=== PATIENT | male | born 1960 | race Caucasian/White ===

== ENCOUNTER → 2018-01-05 | Outpatient (CLI) | payer MEDICARE, OTHER ==
[2018-01-05 09:28] LABS: HEMATOCRIT 42.8 % (42.0-52.0); HEMOGLOBIN 14.5 g/dl (13.5-17.5); MEAN CORPUSCULAR HGB CONC 33.9 g/dl (32.0-36.5); MEAN CORPUSCULAR VOLUME 85.6 fl (80.0-96.0); PLATELET COUNT, AUTOMATED 202 10^3/uL (150-450); RED CELL DISTRIBUTION WIDTH 12.6 % (11.5-14.5); WHITE BLOOD COUNT 5.4 10^3/uL (4.0-10.0)
[2018-01-05 10:03] LABS: TOTAL 25(OH) VITAMIN D 28.3 NG/ML (30.0-100.0)
[2018-01-05 10:07] LABS: ALBUMIN 3.6 GM/DL (3.2-5.2); ALBUMIN/GLOBULIN RATIO 1.09 (1.00-1.93); ALKALINE PHOSPHATASE 65 U/L (45-117); ALT/SGPT 29 U/L (12-78); ANION GAP 7 MEQ/L (8-16); AST/SGOT 14 U/L (7-37); BILIRUBIN,TOTAL 0.4 MG/DL (0.2-1.0); BLOOD UREA NITROGEN 18 MG/DL (7-18); CALCIUM LEVEL 8.6 MG/DL (8.5-10.1); CARBON DIOXIDE LEVEL 27 MEQ/L (21-32); CHLORIDE LEVEL 108 MEQ/L (98-107); CHOLESTEROL LEVEL 198 MG/DL (<200); CHOLESTEROL RISK RATIO 4.212 (<5); CREATININE FOR GFR 0.95 MG/DL (0.70-1.30); FREE T4 1.15 NG/DL (0.76-1.46); GLOMERULAR FILTRATION RATE > 60.0 (>56); GLUCOSE, FASTING 99 MG/DL (70-100); HDL CHOLESTEROL 47 MG/DL (>40); LDL CHOLESTEROL 123.4 MG/DL (<100); NON-HDL-C 151 MG/DL; POTASSIUM SERUM 4.7 MEQ/L (3.5-5.1); PSA SCREENING 0.89 NG/ML (< 4.0); SODIUM LEVEL 142 MEQ/L (136-145); THYROID STIMULATING HORMONE 0.582 uIU/ML (0.358-3.740); TOTAL PROTEIN 6.9 GM/DL (6.4-8.2); TRIGLYCERIDES LEVEL 138 MG/DL (<150)
== END ==
LOC: M LAB 08:40
DX: M79.671 Pain in right foot (principal); E78.5 Hyperlipidemia, unspecified; Z12.5 Encounter for screening for malignant neoplasm of prostate; E55.9 Vitamin D deficiency, unspecified
CPT/HCPCS: 73630

== ENCOUNTER → 2018-04-12 | Outpatient (REF) | payer MEDICARE, OTHER | LOC: M LAB REF 15:32 | DX: D23.121 Other benign neoplasm of skin of left upper eyelid, including canthus (principal) | CPT/HCPCS: 88304 ==

== ENCOUNTER → 2018-11-14 | Outpatient (CLI) | payer MEDICARE, OTHER ==
--- NOTE | 2018-11-20 08:07 | REP ---
CT of the chest without IV contrast for follow up of lung nodules: Comparison is an outside study dated 09/25 2018 from the [place], [place]. The following lung nodules are identified: Image 38, left upper lobe pleural-based, 2 mm, unchanged. Image 44, left upper lobe, pleural-based , 2 mm, unchanged. Image 44, left upper lobe, pleural-based, 2 mm, unchanged. Image 47, right lower lobe, pleural-based, 2 mm, unchanged. Image 56, right lower lobe, 7 mm, unchanged. Image 56, right middle lobe, 4 mm, unchanged. Image 69, left lower lobe, pleural-based, 6 mm, unchanged. Image 70, left lower lobe, 4 mm, unchanged. No new lung nodules are identified. There is curvilinear scarring inferiorly in the right upper lobe and in the lower lobes bilaterally, unchanged. There are no infiltrates. There are no pleural effusions. There is no mediastinal or axillary lymph node enlargement. In the absence of IV contrast the study is insensitive for hilar lymph node enlargement. The unenhanced thoracic aorta is unremarkable. Cardiac size is normal. There are occasional atheromatous calcifications in the coronary arteries, unchanged. There is no pericardial effusion. In the visualized upper abdomen there is wall thickening of small bowel loops in the abdominal right upper quadrant, nonspecific but compatible with enteritis in the appropriate clinical setting. There is no adrenal mass. Impression: All of the patient's lung nodules have been stable for 2 months. No new lung nodules are identified. The largest nodule measures 7 mm. Therefore, an additional follow-up chest CT is recommended in 3 months. Electronically Signed by Robbie Cota MD 11/20/2018 07:58 A
== END ==
LOC: M RAD 17:23
PROVIDERS: ATTEND Family Medicine
DX: R91.1 Solitary pulmonary nodule (principal)

== ENCOUNTER → 2018-12-28 | Outpatient (CLI) | payer MEDICARE, OTHER ==
[~2018-12-28] MED LIST: BACL10TA2 PO; GABA-1171 PO; HYDR-3363 PO; MELO15TA28 PO; NORC1TAB7 PO; PRAV20TA2 PO; SILD100T PO; TRAZ-252 PO
--- NOTE | 2018-12-28 10:05 | PFTRPT ---
Height: 73.00 Inches Weight: 215.00 Lbs BSA: 2.22 Diagnosis: R06.02 DATE OF PROCEDURE: 12/28/2018 ORDERED BY: Dr. Foster Spirometry: Pre and post bronchodilator study of excellent technical quality. Forced vital capacity normal. FEV1 in proportion. Obstructive index is, therefore, normal. Flow Volume Loop: Expiratory limb of the flow volume loop is normal. No significant bronchodilator response identified. Lung Volumes: Total lung capacity normal. Residual volume is in proportion. Diffusing Capacity: Diffusing capacity is normal. Hemoglobin: Hemoglobin acceptable at 13.9. Airway Mechanics: Airway resistance and conductance (cut off). IMPRESSION: Normal study. MTDD
== END ==
LOC: M CARPUL 09:24
PROVIDERS: ATTEND Internal Medicine Pulmonary Disease
DX: R06.02 Shortness of breath (principal)

== ENCOUNTER 2019-01-01 07:03 | Day surgery (SDC) | payer MEDICARE, OTHER ==
[~2019-01-01] VITALS: Ht 185.4 cm; Wt 97.1 kg
[~2019-01-01 07:03] MED LIST changes: +LR 1,000 ML IV ONE; -NORC1TAB7 PO
[2019-01-01] MEDS ORDERED: NORC1TAB7 PO (11:07)
[2019-01-01] MEDS ORDERED: PROPOFOL 200 MG/20 ML VIAL As Ordered ONE (11:23)
[2019-01-01] MEDS ORDERED: LIDOCAINE 2% INJ 100 MG/5 ML SDV (FOR ANES.) As Ordered ONE (11:23)
[2019-01-01] MEDS ORDERED: ROCURONIUM BROMIDE 50 MG/5 ML VIAL As Ordered ONE ×2 (11:23→12:47)
[2019-01-01] MEDS ORDERED: fentaNYL 250 MCG/5 ML INJECTION (J3010) As Ordered ONE (11:26)
[2019-01-01] MEDS ORDERED: MIDAZOLAM INJ 2 MG/2 ML VIAL (J2250) As Ordered ONE (11:26)
[2019-01-01] MEDS ORDERED: BUPIVACAINE/EPIN 0.25% 30 ML VIAL As Ordered ONE (11:42)
[2019-01-01] MEDS ORDERED: dexameTHASONE 4 MG/ML 1ML VIAL (J1100) As Ordered ONE (12:11)
[2019-01-01] MEDS ORDERED: ACETAMINOPHEN 1000MG 100ML IV BTL (OFIRMEV) (J0131 PER 10MG) As Ordered ONE (12:11)
[2019-01-01] MEDS ORDERED: ePHEDrine SULFATE 25 MG/5 ML(5MG/ML) SYRINGE As Ordered ONE (12:24)
[2019-01-01] MEDS ORDERED: SUGAMMADEX SODIUM 500 MG/5 ML VIAL (BRIDION) As Ordered ONE (12:26)
[2019-01-01] MEDS ORDERED: ONDANSETRON 4MG/2ML VIAL (J2405) As Ordered ONE (12:34)
[2019-01-01] MEDS ORDERED: GLYCOPYRROLATE INJ 0.2 MG/ML 2 ML VIAL As Ordered ONE (12:36)
[2019-01-01] MEDS ORDERED: KETOROLAC 60 MG/2 ML VIAL (J1885) As Ordered ONE (12:54)
[2019-01-01] MEDS: fentaNYL 100 MCG/2 ML INJECTION (J3010) IV PRN ×4 (13:19→13:39)
[2019-01-01] MEDS ORDERED: fentaNYL 100 MCG/2 ML INJECTION (J3010) As Ordered ONE (13:19)
[2019-01-01] MEDS ORDERED: NORCO, ANEXSIA 5/325MG TABLET (HYDROcodone/ACETAMINOPHEN) PO PRN (13:30)
[2019-01-01] MEDS ORDERED: ONDANSETRON 4MG/2ML VIAL (J2405) IV PRN (13:30)
[2019-01-01] MEDS ORDERED: LR 1,000 ML IV SCH (13:30)
[2019-01-01] MEDS: oxyCODONE 5MG TAB PO PRN ×2 (13:43→14:25)
[2019-01-01 15:40] VITALS: BP 142/81
--- NOTE | 2019-01-02 08:16 | RO ---
DATE OF PROCEDURE: 01/01/2019 PREOPERATIVE DIAGNOSIS: Incarcerated ventral hernia. POSTOPERATIVE DIAGNOSIS: Incarcerated ventral hernia. PROCEDURE: Laparoscopic repair of incarcerated umbilical hernia. SURGEON: Dr. Robbie Rivera. FAMILY RESOURCE COORDINATOR: None. ANESTHESIA: General. ESTIMATED BLOOD LOSS: 5. COMPLICATIONS: None. INDICATIONS FOR PROCEDURE: The patient is a 58-year-old male who presents with pain periumbilically with intermittent lumps, is found to have a swollen area around the umbilicus on exam. Recommendation was to proceed with laparoscopic repair. Risks, benefits of procedure not limited to including bleeding, infection, hernia recurrence, hernia formation, damage to surrounding structures, need for further surgery were discussed in detail with the patient. Informed consent was obtained and procedure was planned. PROCEDURE: The patient was brought back to the operating room eight. After sufficient sedation, the abdomen was sterilely prepped and draped. Next time-out was done to confirm proper patient and proper procedure. Following that, a 5 mm incision was made in the left upper quadrant. Veress needle was inserted and the abdomen was insufflated 15 mmHg. Next Veress needle was removed. A 5 mm Optiview port was used to gain access to the abdomen. Once the abdomen was entered, there was extensive amount of preperitoneal fat along the entire midline of the abdomen. No obvious hernias were identified. There was some swollen, edematous fat periumbilically but that was the only sign that there was something abnormal in that area. Another 5 mm port was placed in the left lower quadrant. Using the Enseal, the preperitoneal fat was dissected free from the falciform ligament all the way inferior to the umbilicus. There was a small hernia defect identified at the umbilicus about 5 mm in size. There were no other ventral hernias identified anywhere else in the midline. I have looked extensively, did not see anything anywhere else. Once this was completed, the hernia was reduced at the umbilicus. 9 cm of Parietex mesh was taken, had #0 Vicryl sutures placed in all four corners. Mesh was placed inside the abdomen. Transfascial sutures were brought out through the abdominal wall, tied in place. A secure strap tacker was then used to place two rows of tacks around the perimeter of the mesh thus completing the procedure. The abdomen was then desufflated. Skin incisions were closed #4-0 Vicryl subcuticular sutures. The abdomen was cleaned and dried. Steri-Strips, 4x4 and tape were applied thus ending procedure.
== END 2019-01-01 16:00 | disposition home or self-care (01) ==
LOC: M SDC 07:03
PROVIDERS: ATTEND Surgery
DX: K43.6 Other and unspecified ventral hernia with obstruction, without gangrene (principal); E78.5 Hyperlipidemia, unspecified; Z79.899 Other long term (current) drug therapy; Z88.5 Allergy status to narcotic agent
CPT/HCPCS: 49653; C1781; J0131; J0690; J1100; J1885; J2250; J2405; J3010

== ENCOUNTER → 2019-02-14 | Outpatient (CLI) | payer MEDICARE, OTHER ==
[~2019-02-14] MED LIST changes: -LR 1,000 ML IV ONE; +NORC1TAB7 PO
--- NOTE | 2019-02-14 09:35 | REP ---
CT of the chest without IV contrast for follow up of lung nodules: Comparisons are the chest CT dated 11/14/[address] dated 09/25/2018. There are the following lung nodules again identified and are all unchanged from the prior studies: Image 34, left upper lobe, pleural-based, 2 mm, unchanged. Image 40, left upper lobe, pleural-based, 2 ml, unchanged. Image 40, left upper lobe, pleural-based, 2 mm, unchanged. Image 41, right lower lobe, pleural-based, 2 mm, unchanged. Image 49, right middle lobe, 4 mm, unchanged. Image 51, right lower lobe, 7 mm, unchanged. Image 63, left lower lobe, pleural-based, 6 mm, unchanged. Image 63, left lower lobe, 4 mm, unchanged. There are no new lung masses or nodules. There are focal zones of curvilinear scarring in the right upper lobe and in the lower lobes bilaterally, unchanged. There is a new focal zone of discoid atelectasis in the right middle lobe. The unenhanced thoracic aorta is unremarkable. Cardiac size is normal. Calcified atheroma is again identified in the coronary arteries, unchanged. The visualized unenhanced upper abdominal contents again demonstrate wall thickening of small bowel loops in the right upper quadrant, similar to the prior study. There is also now wall thickening of the transverse colon as an interval change. This is nonspecific and may represent enteritis or colitis in the appropriate clinical setting. Impression: All of the patient's lung nodules are stable and unchanged. Focal zones of curvilinear scarring are unchanged. New discoid atelectasis in the right middle lobe. There are findings compatible with enteritis and small bowel loops in the right upper quadrant, similar to the prior study. On the study today there are findings compatible with colitis of the transverse colon, not present previously. Electronically Signed by Robbie Cota MD 02/14/2019 09:27 A
== END ==
LOC: M RAD 08:33
PROVIDERS: ATTEND Internal Medicine Pulmonary Disease
DX: R91.8 Other nonspecific abnormal finding of lung field (principal)

== ENCOUNTER → 2019-02-15 | Outpatient (CLI) | payer MEDICARE, OTHER ==
[~2019-02-15] MED LIST changes: +METHACHOLINE KIT (J7674) INH ONE
--- NOTE | 2019-02-15 13:27 | PFTRPT ---
Height: 73.00 Inches Weight: 215.00 Lbs BSA: 2.22 Diagnosis: R06.02 DATE OF PROCEDURE: 02/15/2019 ORDERED BY: Dr. Foster INTERPRETATION: Excellent technical quality. Under protocol, methacholine was administered. At a dose of 10 mg or 63.875 CDUs, a 22% decline in the FEV1 was noted. PC of 6.59 is significant. Flow rates did return to baseline post bronchodilator administration. IMPRESSION: Positive methacholine challenge study. MTDD
== END ==
LOC: M CARPUL 12:26
PROVIDERS: ATTEND Internal Medicine Pulmonary Disease
DX: R06.02 Shortness of breath (principal)
CPT/HCPCS: 94070; 95070; J7674

== ENCOUNTER → 2019-05-28 | Outpatient (REF) | payer MEDICARE, OTHER ==
[~2019-05-28] MED LIST changes: -METHACHOLINE KIT (J7674) INH ONE
[2019-05-28 13:17] LABS: ALT/SGPT 27 U/L (12-78); BILIRUBIN,TOTAL 0.6 MG/DL (0.2-1.0); BLOOD UREA NITROGEN 20 MG/DL (7-18); CARBON DIOXIDE LEVEL 23 MEQ/L (21-32); CHLORIDE LEVEL 109 MEQ/L (98-107); CHOLESTEROL LEVEL 215 MG/DL (<200); CHOLESTEROL RISK RATIO 5.119 (<5); CREATININE FOR GFR 1.17 MG/DL (0.70-1.30); GLOMERULAR FILTRATION RATE > 60.0 (>56); GLUCOSE, FASTING 97 MG/DL (70-100); HDL CHOLESTEROL 42 MG/DL (>40); LDL CHOLESTEROL 129 MG/DL (<100); NON-HDL-C 173 MG/DL; POTASSIUM SERUM 4.7 MEQ/L (3.5-5.1); SODIUM LEVEL 140 MEQ/L (136-145); TOTAL PROTEIN 7.2 GM/DL (6.4-8.2); TRIGLYCERIDES LEVEL 220 MG/DL (<150)
[2019-05-28 13:55] LABS: TOTAL 25(OH) VITAMIN D 20.9 NG/ML (30.0-100.0)
== END ==
LOC: M SFHCPLAZ 09:38
PROVIDERS: ATTEND Physician Assistant
DX: E78.2 Mixed hyperlipidemia (principal); Z12.5 Encounter for screening for malignant neoplasm of prostate; E55.9 Vitamin D deficiency, unspecified
CPT/HCPCS: 36415; 80053; 80061; 82306; G0103

== ENCOUNTER → 2019-05-28 | Outpatient (CLI) | payer MEDICARE, OTHER ==
--- NOTE | 2019-05-28 10:19 | REPPI ---
Clinical: Left elbow pain. Technique: AP, lateral, bilateral oblique views of the left elbow. Findings: Well corticated bony fragments are identified along the lateral humeral condyle and calcific tendinopathy at the olecranon process is appreciated. There is no evidence for acute fracture or dislocation. No significant swelling. Anterior and posterior fat pads are in normal position. Impression: Chronic/post traumatic changes. No obvious acute process appreciated. Electronically Signed by Jeff Armenta MD 05/28/2019 10:10 A
== END ==
LOC: M PLAIMG 09:48
PROVIDERS: ATTEND Physician Assistant
DX: M25.522 Pain in left elbow (principal); E78.2 Mixed hyperlipidemia; Z12.5 Encounter for screening for malignant neoplasm of prostate; E55.9 Vitamin D deficiency, unspecified
CPT/HCPCS: 36415; 73080; 80053; 80061; 82306; G0103; G0463

== ENCOUNTER → 2019-08-13 | Outpatient (CLI) | payer MEDICARE, OTHER ==
--- NOTE | 2019-08-13 11:47 | REP ---
CT CHEST WITHOUT CONTRAST: HISTORY: Abnormal lung field finding. Comparison chest CT studies are dated February 14, 2019, November 14, 2018, and September 15, 2018. FINDINGS: The previously noted 7 mm noncalcified pulmonary nodule in the right lower lobe is again seen, displayed on page 55 of 109 in series 201 of today's study. This is unchanged from the September 25, 2018 study. The other areas of pleuroparenchymal fibrosis and tiny subpleural nodularity are also unchanged from the September 25, 2018 study. No new pulmonary nodules appreciated. No infiltrate is seen. No adrenal lesion is seen. The visualized upper abdominal structures are unremarkable. There is some vascular calcification along the course of the left coronary artery. No hilar or mediastinal mass or adenopathy is seen. No pleural or pericardial effusion is noted. IMPRESSION: Stable pulmonary nodular changes. The largest of these is a 7 mm nodule in the right lower lobe. 6-month followup study suggested. Electronically Signed by Lennox Cristobal MD 08/13/2019 12:36 P
== END ==
LOC: M RAD 10:49
PROVIDERS: ATTEND Internal Medicine Pulmonary Disease
DX: R91.8 Other nonspecific abnormal finding of lung field (principal)

== ENCOUNTER → 2019-11-19 | Outpatient (CLI) | payer MEDICARE, OTHER ==
--- NOTE | 2019-11-19 23:00 | REP ---
REASON FOR EXAM: Assess for possible periumbilical hernia. Patient has periumbilical pain. Multiple ultrasonographic images of the region of interest show no evidence of a ventral rent. IMPRESSION: No ultrasonographic evidence of a hernia. Consider further evaluation with anatomical imaging, such as CT. Electronically Signed by Parviz Vora DO 11/20/2019 10:10 A
== END ==
LOC: M RAD 13:40
PROVIDERS: ATTEND Surgery
DX: R10.33 Periumbilical pain (principal)

== ENCOUNTER → 2020-02-25 | Outpatient (CLI) | payer MEDICARE, OTHER ==
--- NOTE | 2020-03-05 12:40 | REP ---
CT CHEST WITHOUT CONTRAST HISTORY: Other nonspecific abnormal finding of lung field. COMPARISON: Chest CT studies are reviewed the most recent of which is from 08/13/2019 and the most remote of which is from 09/25/2018. CT FINDINGS: There are multiple stable nodular opacities scattered in the lung mirza. The largest of these is a 7-mm nodule in the right lower lobe. This does not appear to have grown in the 17-month interval since the 09/25/2018 study. The other nodular opacities are unchanged. No new nodule is seen in the lung mirza. No pulmonary mass lesion is observed. Bilateral lower lobe, lingular, and right middle lobe atelectatic changes and fibrotic changes are again noted essentially unchanged. No endobronchial lesion is appreciated. No hilar or mediastinal mass is seen. There is no evidence of pleural or pericardial effusion. There is mild left coronary artery vascular calcification. No adrenal lesion is seen. Visualized upper abdominal structures are unremarkable. IMPRESSION: Stable pulmonary nodular densities, the largest of which is a 7-mm nodule in the right lower lobe. Fifteen month stability demonstrated. Repeat CT study recommended in 9-12 months. MTDD
== END ==
LOC: M RAD 14:10
PROVIDERS: ATTEND Internal Medicine Pulmonary Disease
DX: R91.8 Other nonspecific abnormal finding of lung field (principal)

== ENCOUNTER 2020-03-28 13:29 | Emergency (ER) | payer MEDICARE, OTHER ==
[~2020-03-28] VITALS: Ht 185.4 cm; Wt 100.0 kg
[2020-03-28] MEDS ORDERED: ASPIRIN 81 MG CHEW TABLET PO ONE (14:00)
[2020-03-28] MEDS ORDERED: NS 1,000 ML IV ONE (14:00)
[2020-03-28] MEDS ORDERED: GI COCKTAIL 50ML BTL(HYOSCYAMINE/MAALOX/LIDOCAINE VISCOUS)(1:3:1) PO ONE (14:00)
[2020-03-28 14:03] LABS: BASO % 0.6 % (0.0-1.0); EOS # 0.2 10^3/uL (0.0-0.5); EOS % 4.7 % (0.0-3.0); HEMATOCRIT 43.2 % (42.0-52.0); HEMOGLOBIN 14.3 g/dl (13.5-17.5); LYMPH # 1.6 10^3/uL (1.5-5.0); LYMPH % 32.1 % (24.0-44.0); MEAN CORPUSCULAR HEMOGLOBIN 29.1 pg (27.0-33.0); MEAN CORPUSCULAR HGB CONC 33.1 g/dl (32.0-36.5); MONO # 0.6 10^3/uL (0.0-0.8); MONO % 12.6 % (0.0-5.0); NEUTROPHILS # 2.5 10^3/uL (1.5-8.5); NEUTROPHILS % 49.6 % (36.0-66.0); PLATELET COUNT, AUTOMATED 207 10^3/uL (150-450); RED BLOOD COUNT 4.91 10^6/uL (4.30-6.10); WHITE BLOOD COUNT 5.1 10^3/uL (4.0-10.0)
[2020-03-28] MEDS ORDERED: ISOVUE-370 76% 100ML VIAL As Ordered ONE (14:03)
--- NOTE | 2020-03-28 14:03 | REP ---
INDICATION: CHEST PAIN. COMPARISON: None. TECHNIQUE: Sitting AP portable view. FINDINGS: Monitoring electrodes overlie the chest. There is linear platelike atelectasis in the right base above and slightly elevated right hemidiaphragm. Pleural angles are sharp. No infiltrate is seen. Heart is not enlarged. Pulmonary vasculature is not increased. No bony abnormality. IMPRESSION: Minimal platelike atelectasis right base. Otherwise no active disease. <Electronically signed by Martin Cristobal > 03/28/20 1400
[2020-03-28 14:34] LABS: ALBUMIN 3.6 GM/DL (3.2-5.2); ALT/SGPT 35 U/L (12-78); BILIRUBIN,DIRECT < 0.1 MG/DL (0.0-0.2); BILIRUBIN,TOTAL 0.3 MG/DL (0.2-1.0); LIPASE 96 U/L (73-393); NT-PRO BNP 55 PG/ML (<125); THYROID STIMULATING HORMONE 0.804 uIU/ML (0.358-3.740); TOTAL PROTEIN 6.9 GM/DL (6.4-8.2)
--- NOTE | 2020-03-28 14:42 | REP ---
INDICATION: chest pain/abdominal pain. COMPARISON: 02/25/2020 TECHNIQUE: CT angiogram chest performed following the intravenous administration of 100 cc of Isovue 370. Sagittal and coronal reconstruction images are performed. FINDINGS: Lungs: There are stable fibrotic changes bilaterally. There is stable subcentimeter nodular density in the right lung on image number 41 and there is a stable nodular density in the right lower lobe on image 44. There dependent atelectatic changes in both lungs. Mediastinum: No adenopathy. Pulmonary arteries: No evidence of pulmonary embolism. Geno: No adenopathy. Axilla: No adenopathy. Pleura: No effusion. Heart: Not enlarged. Thoracic aorta: No aneurysm or dissection. Upper abdominal structures: Unremarkable. Visualized osseous structures: Unremarkable. IMPRESSION: No CT evidence of pulmonary embolism.No infiltrate seen. <Electronically signed by Robbie Braswell > 03/28/20 [id number]
--- NOTE | 2020-03-28 14:48 | REP ---
INDICATION: chest pain/abdominal pain COMPARISON: None. TECHNIQUE: CT Scan of the abdomen and pelvis was performed with intravenous administration of 100 cc of Isovue 370, without oral contrast. FINDINGS: Liver: Few scattered subcentimeter hypodensities in the liver probably represent cysts. Gallbladder: Unremarkable. Spleen: Normal. Adrenals: Normal. Pancreas: Normal. Kidneys: Normal. Small and large bowel: There are multiple diverticula of the sigmoid and left colon without acute diverticulitis. Free fluid: None. Abdominal aorta: No aneurysm or dissection. Adenopathy: None. Appendix: Not inflamed. Osseous structures: There are mild degenerative changes of the spine without compression deformity. Pelvis: No mass. IMPRESSION: No acute abnormalities. Colonic diverticulosis without acute diverticulitis. No evidence of appendicitis. No free air or free fluid. <Electronically signed by Robbie Braswell > 03/28/20 [id number]
[2020-03-28 16:05] VITALS: BP 129/72
--- NOTE | 2020-03-29 07:50 | ECGEPIP ---
[facility] - ED Test Date: 2020-03-28 Pat Name: WAYNE RODRIGUEZ Department: Room: - Gender: Male Platform Software Engineer: : 1960 Requested By: Viviane Isaac Order Number: [id number] Reading MD: John Ramírez Measurements Intervals [place] Rate: 84 P: 11 PA: 164 QRS: -9 QRSD: 101 T: 9 QT: 360 QTc: 426 Interpretive Statements SINUS RHYTHM POOR R WAVE PROGRESSION NSTTW ABNORMALITY(S) NO PRIORS FOR COMPARISON Electronically Signed on 03-29-2020 7:50:16 EDT by John Ramírez
--- NOTE | 2020-03-29 07:51 | ECGEPIP ---
[facility] - ED Test Date: 2020-03-28 Pat Name: WAYNE RODRIGUEZ Department: Room: - Gender: Male Hotel Associate: JCaroline : 1960 Requested By: Viviane Isaac Order Number: [id number] Reading MD: John Ramírez Measurements Intervals [place] Rate: 63 P: 25 AR: 187 QRS: 8 QRSD: 101 T: 12 QT: 391 QTc: 403 Interpretive Statements SINUS RHYTHM POOR R WAVE PROGRESSION NSTTW ABNORMALITY(S) SIMILAR TO PRIOR ON SAME DATE Electronically Signed on 03-29-2020 7:50:40 EDT by John Ramírez
== END 2020-03-28 16:07 | disposition home or self-care (01) ==
LOC: M ED 13:29
DX: R10.9 Unspecified abdominal pain (principal); R07.9 Chest pain, unspecified; K21.9 Gastro-esophageal reflux disease without esophagitis; R91.8 Other nonspecific abnormal finding of lung field; K57.30 Diverticulosis of large intestine without perforation or abscess without bleeding; E11.9 Type 2 diabetes mellitus without complications; E78.5 Hyperlipidemia, unspecified; Z88.6 Allergy status to analgesic agent; Z79.899 Other long term (current) drug therapy
CPT/HCPCS: 71045; 71275; 74177; 80047; 80076; 83605; 83690; 83880; 84439; 84443; 84484; 85025; 93005; 93041; 94760; 96360; 96361; 99285; Q9967

== ENCOUNTER → 2020-05-20 | Outpatient (CLI) | payer MEDICARE, OTHER ==
--- NOTE | 2020-05-26 14:35 | SLEEPHOME ---
DIAGNOSTIC HOME SLEEP STUDY DATE: 05/20/2020 ORDERED BY: Mir Martinez M.D. Diagnostic home sleep testing was performed due to concern for the obstructive sleep apnea syndrome. For testing, a nocturnal T3 respiratory monitoring device was used. Continuous record was made of pulse, oxygen saturation, air flow, chest and abdominal strain, and body position. 9 hours and 59 minutes of data were reviewed. There were 6 hours and 53 minutes marked as time in bed. During the interval marked time in bed, there were 71 respiratory events identified of 10 seconds in duration or greater for a respiratory event index of 10.3. The events were primarily obstructive. Baseline pulse rate 50. Pulse rate range 44 to 121. Baseline saturation was 93%. Saturations fell to 82%. Testing was performed in both the supine and non-supine positions. IMPRESSION: Abnormal home sleep testing with repetitive respiratory events and oxygen desaturations to 82% with a respiratory event index of 10.3 is consistent with the obstructive sleep apnea syndrome. RECOMMENDATION: The patient should be encouraged to undergo formal sleep evaluation.
== END ==
LOC: M SLEEP HO 10:50
PROVIDERS: ATTEND Internal Medicine Cardiovascular Disease
DX: G47.30 Sleep apnea, unspecified (principal)

== ENCOUNTER → 2020-09-23 | Outpatient (REF) | payer MEDICARE, OTHER | LOC: M LAB REF 15:20 | PROVIDERS: ATTEND Surgery | DX: D17.1 Benign lipomatous neoplasm of skin and subcutaneous tissue of trunk (principal) ==

== ENCOUNTER → 2021-01-08 | Outpatient (CLI) | payer MEDICARE, OTHER ==
--- NOTE | 2021-01-13 10:05 | SLEEPCENT ---
DATE: 01/08/2021 ORDERED BY: Dr. Jeffrey Garnica Nocturnal polysomnography was performed for evaluation of sleep physiology. Seven hours and 9 minutes of data were reviewed. There were 364.5 minutes of sleep identified. Sleep latency was mildly prolonged at 17 minutes. REM latency was short at 49 minutes. Sleep architecture showed some fragmentation later in the study but there were four REM cycles noted, and the overall sleep efficiency was good at 85.9%. The electrocardiogram shows a sinus rhythm with an average heart rate of 50 beats per minute. Rate range was 40-70 and occasional unifocal ventricular ectopic beats were noted. EEG showed reasonably normal waveforms for wake and sleep. There were 33 respiratory events identified of 10 seconds in duration or greater for an apnea-hypopnea index of 5.3. The events were not exclusive to sleep stage nor to body position. Arousals from respiratory events occurred 2 times per hour. Oxygen saturations dipped below 90%. There was significant activity in the limb leads with 3 trains of 30 events and a limb movement arousal index of 9.4. IMPRESSIONS: 1. Mild obstructive sleep apnea syndrome (G47.33). Apnea-hypopnea index 5.3. 2. Mild periodic limb movement disorder (G47.61). Limb movement arousal index 9.4. RECOMMENDATION: Given the oxygen desaturations appreciated, the patient would benefit from referral [facility] to the [facility] for [facility]. In the interim, alcohol and sedative avoidance should be practiced and caution exercised during the operation of motor vehicles. Should the patient have persistence of respiratory symptoms after pressure is instituted, initiation of treatment to reduce the frequency of arousals from limb activity may further improve the quality of sleep.
== END ==
LOC: M SLEEP 20:00
PROVIDERS: ATTEND Family Medicine
DX: G47.33 Obstructive sleep apnea (adult) (pediatric) (principal); G47.61 Periodic limb movement disorder

== ENCOUNTER → 2021-02-21 | Outpatient (CLI) | payer MEDICARE, OTHER ==
--- NOTE | 2021-02-23 16:31 | SLEEPCENT ---
DATE: 02/21/2021 ORDERED BY: Jeffrey Garnica MD Nocturnal polysomnography was performed for the titration of pressure therapy in this patient with obstructive sleep apnea syndrome, apnea-hypopnea index of 5.3. For testing the patient was fit with a ResMed AirFit full face mask of large size, 4 cm of water pressure were applied to the circuit, and the lights were extinguished. Seven hours and 54 minutes of data were reviewed. There were 393.5 minutes of sleep identified. Sleep latency was mildly prolonged at 26 minutes, REM latency likewise at 127 minutes. Sleep architecture was improved with optimal pressure therapy. There were four REM cycles noted. Overall sleep efficiency was 83.9%. The electrocardiogram showed a sinus rhythm with an average heart rate of 50 beats per minute. Rate ranged 40-60. EEG showed normal waveforms for wake and sleep. Respiratory events were best palliated with CPAP at a pressure of +8. Some limb activity persisted and the limb movement arousal index on this occasion was 13.3. IMPRESSION: Obstructive sleep apnea syndrome (G47.33). RECOMMENDATION: Nightly use of pressure therapy 8 cm of water.
== END ==
LOC: M SLEEP 20:00
PROVIDERS: ATTEND Family Medicine
DX: G47.33 Obstructive sleep apnea (adult) (pediatric) (principal)

== ENCOUNTER → 2021-03-02 | Outpatient (CLI) | payer MEDICARE, OTHER ==
--- NOTE | 2021-03-02 10:06 | REP ---
INDICATION: ABNORMAL FINDING OF LUNG FIELD COMPARISON: 03/28/2020 the latest prior TECHNIQUE: Standard helical technique without contrast FINDINGS: Mediastinum and pulmonary stacey are stable. There is no evidence of a mass or adenopathy. There are no pleural or pericardial effusions. The imaged upper abdomen and imaged osseous structures are within normal limits. Evaluation of the lung mirza shows a stable 8 mm size right lower lobe nodule. There is a stable 6 mm size nodule in the right middle lobe. There is an unchanged pleural based 2 mm size nodule in the inferior left upper lobe. There are inferior lingular and inferior right middle lobe curvilinear density status quo. There is minimal bilateral basilar subsegmental atelectatic change. IMPRESSION: Stable pulmonary nodules as described above. Lung rads category 2. Follow-up as per the revised Fleischner society criteria. <Electronically signed by Parviz Vora > 03/02/21 1002
== END ==
LOC: M PLAIMG 09:26
PROVIDERS: ATTEND Internal Medicine Pulmonary Disease
DX: R91.8 Other nonspecific abnormal finding of lung field (principal)

== ENCOUNTER → 2021-04-07 | Outpatient (CLI) | payer MEDICARE, OTHER ==
--- NOTE | 2021-04-07 15:36 | REP ---
INDICATION: PAIN LT HIP JOINT. COMPARISON: None. TECHNIQUE: 3T multiplanar MRI imaging of the bony pelvis was obtained using various sequences. FINDINGS: The hip joint spaces are symmetric and relatively well maintained. There is no abnormal focal chondral or subchondral signal seen arising from the femoral or acetabular component of either hip. There is no hip joint effusion. There is mild T2 hyper signal seen in the trochanteric tendono bursal region of each hip. The sacroiliac joints are within normal limits. The cortical marrow signal seen throughout the bony pelvis is within normal limits. There is no evidence of a mass or mass effect. There are 2 incidental synovial herniation pits in the right femoral neck. Seen only on the sagittal images there is linear T2 hyper signal in the anterior labrum. There are 2 mm sized T2 hyper signal foci adjacent to the anterior labrum of the left hip and again, only seen on the sagittal images. IMPRESSION: 1. Possible minimal bilateral trochanteric tendono bursitis. 2. Possible right hip labral tear. This could be confirmed with hip MRI arthrography if clinically relevant. 3. Possible left hip paralabral cysts which could be secondary to a labral tear. <Electronically signed by Parviz Vora > 04/07/21 [id number]
== END ==
LOC: M PLAIMG 12:48
PROVIDERS: ATTEND Nurse Practitioner Family
DX: M25.552 Pain in left hip (principal)

== ENCOUNTER → 2021-06-29 | Outpatient (CLI) | payer MEDICARE, OTHER | LOC: M LABSMTC 09:12 | PROVIDERS: ATTEND Anesthesiology | DX: Z01.812 Encounter for preprocedural laboratory examination (principal); Z20.822 Contact with and (suspected) exposure to COVID-19 ==

== ENCOUNTER 2021-07-03 09:39 | Day surgery (SDC) | payer MEDICARE, OTHER ==
[~2021-07-03] VITALS: Ht 185.4 cm; Wt 102.0 kg
[~2021-07-03 09:39] MED LIST changes: +NS 1,000 ML IV ONE
[2021-07-03] MEDS ORDERED: propofoL 500 MG/50 ML VIAL As Ordered ONE (09:54)
[2021-07-03] MEDS ORDERED: LIDOCAINE 2% 100MG/5ML SDV (FOR ANES.) As Ordered ONE (09:54)
[2021-07-03] MEDS ORDERED: fentaNYL 100 MCG/2 ML INJECTION As Ordered ONE (09:55)
[2021-07-03 11:30] VITALS: BP 119/72
== END 2021-07-03 11:31 | disposition home or self-care (01) ==
LOC: M OPP 09:39
PROVIDERS: ATTEND Internal Medicine Gastroenterology
DX: Z12.11 Encounter for screening for malignant neoplasm of colon (principal); K57.30 Diverticulosis of large intestine without perforation or abscess without bleeding; K64.0 First degree hemorrhoids; R12 Heartburn; Z79.899 Other long term (current) drug therapy; Z88.5 Allergy status to narcotic agent
CPT/HCPCS: 43239; 88305; G0121; J3010

== ENCOUNTER → 2022-03-29 | Outpatient (CLI) | payer OTHER ==
[~2022-03-29] MED LIST changes: -NS 1,000 ML IV ONE
== END ==
LOC: M PLAIMG 09:50
PROVIDERS: ATTEND Internal Medicine Pulmonary Disease
DX: R91.8 Other nonspecific abnormal finding of lung field (principal); J84.10 Pulmonary fibrosis, unspecified; I70.0 Atherosclerosis of aorta; I25.10 Atherosclerotic heart disease of native coronary artery without angina pectoris